=== PATIENT | male | born 1990 | race Caucasian/White ===

== ENCOUNTER 2024-07-20 09:38 | Day surgery (SDC) | payer BC ==
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
[2024-07-20] MEDS ORDERED: Lactated Ringers 1,000 ML IV ONE (09:54)
[2024-07-20 10:01] VITALS: RESP 16
[2024-07-20] MEDS: Lactated Ringers 1,000 ML IV SCH (10:15)
[2024-07-20] MEDS ORDERED: propofoL IV ONE ×3 (11:44→11:57)
[2024-07-20 12:31] VITALS: O2SAT 98
[2024-07-20 12:45] VITALS: BP 152/84; PULSE 67; TEMP 98.6
--- NOTE | 2024-07-21 10:28 | OP ---
SURGERY DATE/TIME: 07/20/2024 [id number] PREOPERATIVE DIAGNOSES: 1) Family history of colon cancer. 2) History of polyps. 3) Need for followup screening colonoscopy. POSTOPERATIVE DIAGNOSES: 1) Small proximal rectal polyp. 2) Good preparation. 3) Withdrawal time approximately 8 minutes. 4) ASA class 2. PROCEDURES: 1) Colonoscopy to cecum. 2) Hot biopsy polypectomy of small polyp proximal rectum. SURGEON: Javier Parry MD AGRICULTURE INSPECTOR: Angie Townsend [id number] INDICATION: As noted above. Consent was obtained. DESCRIPTION OF PROCEDURE AND FINDINGS: The patient was taken to the endoscopy room. MAC anesthesia induced. After official time-out, no disagreement in planned procedure. Videocolonoscope was passed up through the slightly tortuous sigmoid, descending, transverse, ascending colon around to the cecum. Appendiceal orifice and valve well visualized and photo documented. Prep overall was good. The scope was carefully withdrawn over the next 8 minutes. No signs of any large polyps, masses, or obstructing lesions. There was a small polyp in the very proximal rectum. This was removed with hot biopsy polypectomy. Good hemostasis was noted. Findings discussed with the family out in the waiting area. He tolerated the procedure well. There was no immediate complication.
== END 2024-07-20 12:54 | disposition home or self-care (01) ==
LOC: SDC 09:38
PROVIDERS: ATTEND Surgery
DX: Z12.11 Encounter for screening for malignant neoplasm of colon (principal); Z09 Encounter for follow-up examination after completed treatment for conditions other than malignant neoplasm; Z86.0100 Personal history of colon polyps, unspecified; Z80.0 Family history of malignant neoplasm of digestive organs; K62.1 Rectal polyp
CPT/HCPCS: J2704